=== PATIENT | female | born 1980 | race Asian ===

== ENCOUNTER → 2020-04-07 | Outpatient (CLI) | payer OTHER | END | disposition home or self-care (01) | LOC: PLD 08:07 → LAB SHORT 08:07 | DX: N93.9 Abnormal uterine and vaginal bleeding, unspecified (principal) | CPT/HCPCS: 88305 ==

== ENCOUNTER → 2020-04-07 | Outpatient (CLI) | payer OTHER ==
[2020-04-14 10:07] LABS: ANABASINE <1 ng/mL (.); COTININE <10 ng/mL (.); NICOTINE 14 ng/mL (.)
== END | disposition home or self-care (01) ==
LOC: LAB SHORT 16:58 → LAB 16:58
PROVIDERS: Obstetrics & Gynecology
DX: Z09 Encounter for follow-up examination after completed treatment for conditions other than malignant neoplasm (principal); Z87.891 Personal history of nicotine dependence
CPT/HCPCS: G0480

== ENCOUNTER 2020-07-22 10:28 | Day surgery (SDC) | payer OTHER ==
[~2020-07-22] VITALS: Ht 160 cm; Wt 75.0 kg
[~2020-07-22 10:28] MED LIST: ATOR20 PO; LOSA25 PO
--- NOTE | 2020-07-22 11:50 | NUR ---
Ambulatory in Day Surgery History, Chart, Medications and Allergies reviewed before start of procedure. Lungs clear T/O to Auscultation. Patient confirms NPO status and agrees with scheduled surgery. Pre-Op teaching done. Pt verbalizes understanding. Patient States Post-Procedure ride home has been arranged.
--- NOTE | 2020-07-22 16:09 | NUR ---
1545-IV LEFT FOREARM INFILTRATED; DC'D WITH CATH INTACT
--- NOTE | 2020-07-22 17:00 | NUR ---
pt arrived to unit via stretcher, drowsy but anwers questions appropriately, extended recovery vs commenced and stable. pt instructedin IS, provided clear liquids, encouraged to sit up TCDB. lap sites x 5 c/d/i. family with pt.
--- NOTE | 2020-07-22 17:36 | NUR ---
pt increasingly awake, assists with rolling well, changed peripad with moderate bleeding, tolerating PO intake
--- NOTE | 2020-07-22 18:49 | NUR ---
provided pt with dinner tray and coffee, encouraged standing/oob. pt states she will after some coffee
--- NOTE | 2020-07-22 21:37 | NUR ---
pt has been up and ambulating twice. able to walk to bathroom with minimal assist, stated that she felt a little dizzy but no weakness noted. voided in toilet reddish in color, scant drainage on surgical arcadio pad. changed with void. pt reports feeling very uncomfortable 8/10, has a constant grimace on her face with ambulating but has been improving with second ambulation. currently awaiting family members to pickers material handlers a heating pack and stool softners and reassess patients comfort level with leaving to home.
--- NOTE | 2020-07-22 23:08 | NUR ---
DISHCARGE PT LEFT AT APPROX 2300 VIA WHEELCHAIR WITH SISTER. PRINTED INSTRUCTIONS FOR AFTER CARE GIVEN TO PATIENT AND GONE OVER WITH HER. PRESCRIPTION FOR PAIN MEDICATION AT HOME WITH PATIENT. PT ABLE TO VOID MULTIPLE TIMES AND AMBULATE WITH MINIMAL ASSISTANCE. BELONGINGS WITH PATIENT.
== END 2020-07-22 23:02 | disposition home or self-care (01) ==
LOC: ORSCMMR 10:28 → ORD 10:30 → ORSCMMR 12:00 → SURS 16:32 → ORSCMMR 23:02
PROVIDERS: Obstetrics & Gynecology
PROC: 0U5F4ZZ Destruction of Cul-de-sac, Percutaneous Endoscopic Approach (ICD-10-PCS; principal; 2020-07-22 12:00)
PROC: 0UT04ZZ Resection of Right Ovary, Percutaneous Endoscopic Approach (ICD-10-PCS; principal; 2020-07-22 12:00)
PROC: 8E0W4CZ Robotic Assisted Procedure of Trunk Region, Percutaneous Endoscopic Approach (ICD-10-PCS; principal; 2020-07-22 12:00)
PROC: 0UT94ZZ Resection of Uterus, Percutaneous Endoscopic Approach (ICD-10-PCS; principal; 2020-07-22 12:00)
PROC: 0UT74ZZ Resection of Bilateral Fallopian Tubes, Percutaneous Endoscopic Approach (ICD-10-PCS; principal; 2020-07-22 12:00)
DX: N92.0 Excessive and frequent menstruation with regular cycle (principal); D25.9 Leiomyoma of uterus, unspecified; Q50.5 Embryonic cyst of broad ligament; N80.3 Endometriosis of pelvic peritoneum; I10 Essential (primary) hypertension; Z79.899 Other long term (current) drug therapy
CPT/HCPCS: 58571; 58662; S2900; 84703; 86900; 86901; 88305; 88307; A9270; A9270-GY; J0690; J1100; J1885; J2250; J2370; J2405; J2704; J3010; J7120

== ENCOUNTER → 2020-09-01 | Outpatient (CLI) | payer OTHER | END | disposition home or self-care (01) | LOC: LAB SHORT 13:53 → LAB 13:53 | DX: Z09 Encounter for follow-up examination after completed treatment for conditions other than malignant neoplasm (principal) | CPT/HCPCS: 87070; 87205 ==

== ENCOUNTER → 2020-09-29 | Outpatient (CLI) | payer OTHER ==
[2020-09-29 19:20] LABS: Source, Urine Clean Catch
[2020-09-29 19:52] LABS: Appearance, Urine Clear (Clear); Bilirubin, Urine Neg (Neg); Blood, Urine 1+ (Neg); Color, Urine Yellow (P-Yellow); Glucose Qualitative, Urine Neg (Neg); Ketones, Urine Neg (Neg); Leukocyte Esterase, Urine Neg (Neg); Nitrite, Urine Neg (Neg); Protein, Urine 1+ (Neg); Urobilinogen, Urine NORM (Normal)
[2020-09-29 20:14] LABS: Bacteria Rare /hpf; Red Blood Cells, Urine 0-2 /hpf (0-2); Squamous Epithelial Cells Few /hpf (Few); White Blood Cells, Urine 0-2 /hpf (0-5)
== END | disposition home or self-care (01) ==
LOC: LAB 19:18
PROVIDERS: Obstetrics & Gynecology
DX: R39.9 Unspecified symptoms and signs involving the genitourinary system (principal)
CPT/HCPCS: 81001